=== PATIENT | male | born 1990 | race African-American/Black ===

== ENCOUNTER 2016-10-29 19:46 | Emergency (ER) | payer SELFPAY ==
[2016-10-29] MEDS ORDERED: SODIUM CHLORIDE 0.9% 1,000 ML ONE (20:46)
[2016-10-29] MEDS ORDERED: FENTANYL 100 MCG/2 ML VIAL ONE (20:46)
[2016-10-29] MEDS ORDERED: ONDANSETRON 4 MG/2ML 2 ML VIAL ONE (20:46)
[2016-10-29 21:10] LABS: ABSOLUTE NEUTROPHIL COUNT 5.1 K/mm3 (1.8-7.7); BASO % 0.4 % (0.2-1.0); EOS # 0.1 (0.0-0.5); EOS % 1.3 % (0.9-2.9); HEMOGLOBIN 15.3 gm/l (14.0-18.0); IMM NEUT # 0.1 K/mm3 (0-0.2); IMM NEUT% 0.8 % (0-1); LYMPH # 2.5 (1.0-4.8); MEAN CELL VOLUME 90.4 fl (80.0-94.0); MEAN CORPUSCULAR HEMOGLOBIN 30.1 pg (27.0-31.0); MEAN CORPUSCULAR HGB CONC 33.3 g/dl (33.0-37.0); MONO # 0.8 (0.0-0.8); MONO % 9.1 % (4-12); NEUT % 59.4 % (43-75); PLATELET COUNT 286 K/mm3 (130-400); RED CELL DISTRIBUTION WIDTH 12.8 % (11.5-14.5); URINE BILIRUBIN NEGATIVE (NEGATIVE); URINE BLOOD NEGATIVE (NEGATIVE); URINE GLUCOSE (UA) NEGATIVE (NEGATIVE); URINE LEUKOCYTE ESTERASE NEGATIVE (NEGATIVE); URINE NITRITE NEGATIVE (NEGATIVE); URINE PROTEIN NEGATIVE (NEGATIVE); URINE UROBILINOGEN 1 mg/dL (0-1 mg/dl)
[2016-10-29 21:12] LABS: URINE COLOR YELLOW
[2016-10-29 21:13] LABS: URINE APPEARANCE CLEAR
[2016-10-29 21:17] LABS: ALB/GLOB RATIO 1.3 (>1.0); CALCIUM 9.1 mg/dL (8.6-10.3); MAGNESIUM 2.2 mg/dL (1.9-2.7)
--- NOTE | 2016-10-30 07:35 | US ---
ABDOMINAL-LIMITED History: Nausea. Findings: Gallbladder: The gallbladder appears to be partially contracted. No discrete gallstones are visualized. No suggested wall thickening or pericholecystic fluid is seen. There is a negative sonographic Mckeon's sign elicited during the course of the exam. Biliary tree: The common hepatic duct measures 1.7 millimeters adjacent to the hepatic artery. Liver: the visualized liver is homogeneous. No masses or evidence of intra-hepatic biliary dilatation are seen. Impression: 1. A partially contracted gallbladder. However no gallstones, or significant biliary dilatation is observed. The findings were called to the emergency room at 2258 hours, 10/29/2016, by [facility].
== END 2016-10-29 23:13 | disposition home or self-care (01) ==
LOC: ED 19:46
DX: R10.11 Right upper quadrant pain (principal); R11.0 Nausea; J45.909 Unspecified asthma, uncomplicated
CPT/HCPCS: 83690; 85025; 80053; 83735; 81003; 76705; 96375; 96376; 99284 ×2; 96374; 96361 ×2; J3010; J2405; J7030